=== PATIENT | male | born 1990 | race Caucasian/White ===

== ENCOUNTER 2022-01-09 19:19 | Emergency (ER) | payer SELFPAY ==
[2022-01-09 20:20] LABS: ACETAMINOPHEN 5.9 ug/mL; BLOOD UREA NITROGEN,BUN 14 mg/dL (7.0-18.0); CARBON DIOXIDE,CO2 27.3 mmol/L (21.0-32.0); CHLORIDE,CL 101 mmol/L (98-107); GLUCOSE RANDOM 69 mg/dL (74-106); SODIUM,NA 136 mmol/L (136-148)
[2022-01-09 20:56] LABS: CORONAVIRUS COVID-19 NAA NEGATIVE (NEGATIVE); INFLUENZA A NAA NEGATIVE (NEGATIVE); INFLUENZA B NAA NEGATIVE (NEGATIVE)
== END 2022-01-09 22:23 ==
LOC: MW.ED 19:19
DX: F10.10 Alcohol abuse, uncomplicated (principal); F19.90 Other psychoactive substance use, unspecified, uncomplicated; R45.851 Suicidal ideations; Z20.822 Contact with and (suspected) exposure to COVID-19; Y90.1 Blood alcohol level of 20-39 mg/100 ml
CPT/HCPCS: 0240U; 36415; 80053; 80143; 80179; 80305; 80307; 81001; 83735; 84443; 85025; 93005; 99285; 93010; 99284

== ENCOUNTER 2022-01-15 14:20 | Emergency (ER) | payer SELFPAY ==
[2022-01-15] MEDS ORDERED: LORazepam 1 MG Tab PO ONE (14:31)
== END 2022-01-15 16:08 | disposition home or self-care (01) ==
LOC: MW.ED 14:20
DX: F41.9 Anxiety disorder, unspecified (principal)
CPT/HCPCS: 93005; 99283; A9270; 93010